=== PATIENT | female | born 1950 | race Caucasian/White ===

== ENCOUNTER 2017-11-09 20:05 | Inpatient (IN) | payer OTHER ==
[~2017-11-09] VITALS: Ht 165.1 cm; Wt 76.4 kg
[2017-11-09] VITALS (11 sets, daily range): BP systolic 82–169; BP diastolic 53–150
--- NOTE | ~2017-11-09 | PR ---
[place], [place] PROGRESS NOTE [id number] UNIT #: [id number] ROOM: 427 DOCTOR: HANNAH WASSERMAN MD,JAI BIRTHDATE: [birth year] DOS: 11/16/2017 SUBJECTIVE: The patient was noted comfortable at this time, resting on the bed without any new acute changes present time. Coughing has been improving gradually. The shortness of breath has improved and not present at rest. There were no symptoms of wheezing reported by the patient. OBJECTIVE: VITAL SIGNS: For the patient shows a normal temperature. The respiratory rate recorded at 18, heart 79, blood pressure 166/88. The pulse oxygen saturation recorded as 96% on room air. HEENT: Examination shows head was atraumatic. Eyes was nonicterus. NECK: Supple. CARDIOVASCULAR: S1, S2 is audible. LUNGS: Noted clear to auscultation bilaterally. There were no crackles. ABDOMEN: Soft, nontender. EXTREMITIES: Chronic changes. LABORATORY DATA: BMP today normal BUN and creatinine. The CBC of the patient this morning: WBC count 4.7. IMPRESSION: The patient resolution of diabetic ketoacidosis, resolving acute pneumonia of left lower lobe as well as pleural effusions. PLAN OF TREATMENT: No changes in the plan for this patient at this time will be necessary. The patient is improving progressively. Continuation of other therapy and plan of management as well. JAI YOUNG MD CM:PNTRANS [id number] JAI WASSERMAN MD 11/16/17 182 interface
--- NOTE | ~2017-11-09 | PR ---
[place], [place] PROGRESS NOTE [id number] UNIT #: [id number] ROOM: 427 DOCTOR: HANNAH WASSERMAN MD,JAI BIRTHDATE: [birth year] DOS: 11/19/2017 SUBJECTIVE: She was comfortably resting at this time on the bed. Denies symptoms of chest pain, hemoptysis, or abdominal pain. Denies symptoms of nausea. The patient stated chest pain has been noted better as her upper abdominal pain. OBJECTIVE: VITAL SIGNS: For the patient was recorded as a normal temperature. The respiratory rate of the patient recorded as 20, heart rate 60, blood pressure 130/49. Pulse oxygen saturation on room air 98% saturation. HEENT: No acute change. NECK: Supple. CARDIOVASCULAR: S1, S2 audible. LUNGS: Noted without any wheezing or crackles. ABDOMEN: Soft and nontender. EXTREMITIES: No edema. LABORATORY DATA: CBC: Normal WBC count, hemoglobin 10 today. Glucose was 153. Other electrolytes normal. IMPRESSION: Resolving acute pneumonia for this patient on the left side with resolution of diabetic ketoacidosis and diabetes mellitus, which has been noted variably controlled. PLAN OF MANAGEMENT: No changes in the plan for the patient at this time. Continue the current plan of therapy as previously. Usual care. Supportive plan of management and treatment. JAI YOUNG MD CM:PNTRANS [id number] JAI WASSERMAN MD 11/19/171914 interface
--- NOTE | ~2017-11-09 | PR ---
[place], [place] PROGRESS NOTE NAME: RICHARD NIEVES UNIT #: [id number] ROOM: [facility] DOCTOR: HANNAH WASSERMAN MD,JAI BIRTHDATE: [birth year] DOS: 11/12/2017 SUBJECTIVE: The patient has been noted comfortable at this time, resting on the bed. Her orientation noted somewhat better. The patient was noted more awake. The patient is appropriate, but still not noted completely to the baseline at the present time. She has been ordered the viral testing for this patient with a nasal influenza A antigen, which was noted yesterday negative. She has not been able to still give any history at the present time. The patient has not been reported any hemodynamic instability except tachycardia with this patient intermittently. Tachycardia noted mostly sinus. The review of systems cannot be completed for this patient. OBJECTIVE: VITAL SIGNS: The patient showed normal temperature, respiratory rate 20, heart rate of 125 at the highest to 109. Blood pressure ranging between 134/60-120/60. Pulse oxygen saturation of the patient noted to room air 96% saturation. HEENT: Mild obesity. Head was atraumatic. Eyes nonicterus. NECK: Supple. CARDIOVASCULAR: S1, S2 is audible. LUNGS: The patient was noted without any wheezing or crackles at present time. ABDOMEN: Soft, nontender. It was obese. Abdominal hernia. EXTREMITIES: The patient was noted without any acute edema. CENTRAL NERVOUS SYSTEM: The patient apparently grossly intact, cranial nerve examination cannot be performed. VISIBLE SKIN: There was no lesions or rashes. MUSCULOSKELETAL SYMPTOMS: Without any acute deformities. LABORATORY DATA: Review for the patient today's visit lactic acid yesterday noted 2.9. Follow up lactic acid 1.9, ammonia level was normal. Influenza A and B, nasal washing antigen negative yesterday. CBC of this morning: WBC count was normal, hemoglobin and hematocrit normal, platelet count normal. CT of the patient, glucose 242, BUN normal, creatinine was normal. The CT scan of the chest that was done yesterday as well neck, abdomen and pelvis, the patient ordered by the primary care attending was reviewed. Small to moderate lingular infiltration noted for this patient in the left lung is highly consistent with acute pneumonia. The rest of the CT scan of the neck, abdomen and pelvis that was done yesterday is reported by the radiologist as a small air fluid level in the right sphenoid sinus and possibility of mild sphenoid sinusitis was suspected with multinodular enlarged goiter in the thyroid was also noted and a similar appearance in comparison to the ultrasound of patient in 2011, was reported. Ill-defined mass of soft tissue noted in the pelvic area of the patient, unclear whether uterus or arising from the ovary. Approximately described as size of 8 x 5.6 cm in size. Pelvic ultrasound was recommended. IMPRESSION: 1. The patient who has been currently noted with finding consistent with an acute pneumonia for this patient. 2. Altered mental status, multifactorial related to the metabolic and infectious in origin for the patient with the sepsis. [place], [place] PROGRESS NOTE NAME: RICHARD NIEVES UNIT #: [id number] ROOM: [facility] DOCTOR: HANNAH WASSERMAN MD,JAI BIRTHDATE: [birth year] 3. Pelvic mass at this time required further delineation and assessment. 4. Resolution of diabetic ketoacidosis. 5. Improvement in the hyperglycemia and diabetes was also noted in the last 24 hours. The blood glucose noted currently close to 200. PLAN OF MANAGEMENT: Continuation of the antibiotics. The patient with acute pneumonia, bronchodilators, oxygen supplementation. Rocephin should suffice for the patient with current coverage of the antibiotics. Discontinue the vancomycin. Add in the Zithromax for this patient to the treatment. Other supportive therapy, plan of management and care plan. Usual treatment. Additional treatment changes to be made for this patient based on the progression of illness. JAI YOUNG MD CM:PNTRANS [id number] JAI WASSERMAN MD 11/12/17 1411 interface
--- NOTE | ~2017-11-09 | PR ---
[place], [place] PROGRESS NOTE [id number] UNIT #: [id number] ROOM: 427 DOCTOR: HANNAH WASSERMAN MD,JAI BIRTHDATE: [birth year] DOS: 11/13/2017 SUBJECTIVE: She has been noted fully awake and alert, oriented with improvement in mental status was noted. She has not been showing any signs of respiratory distress. Denies symptoms of coughing and acute shortness of breath. OBJECTIVE: VITAL SIGNS: For the patient which was recorded shows normal temperature, respiratory rate 17, heart rate of 110-88, blood pressure 140/70-130/60, pulse oxygen saturation was noted as 92%. HEENT: Shows head was atraumatic. Eyes, no icterus. NECK: Supple. CARDIOVASCULAR: S1, S2 is audible. LUNGS: The patient was noted with mild to moderate decreased breath sounds in the left lower lung. There was no wheezing or crackles. ABDOMEN: Soft, nontender. EXTREMITIES: The patient was noted without any acute edema. IMPRESSION: The patient with acute pneumonia resolution, severe diabetic ketoacidosis. The patient is improving metabolic acidosis, clearing of the mental status after resolving metabolic issues. PLAN OF MANAGEMENT: No changes in the medical plan from the pulmonary standpoint. Continue workup and management of other non-pulmonary condition by the primary care physician. Obtain a chest x-ray in the morning to assess the radiologic improvement in the pneumonia or progression. JAI YOUNG MD CM:PNTRANS [id number] JAI WASSERMAN MD 11/13/17 2609 interface
--- NOTE | ~2017-11-09 | CON ---
[place], [place] REPORT OF CONSULTATION NAME: RICHARD NIEVES UNIT #: [id number] ROOM: [facility] DOCTOR: ARIANE MAYORGA MD BIRTHDATE: [birth year] DOS: 11/11/2017 REASON FOR CONSULTATION: DKA, septic shock, metabolic encephalopathy. CHIEF COMPLAINT: Altered mental status. HISTORY OF PRESENT ILLNESS: This is a 67-year-old female who presented initially to the ER with EMS as patient was found to be lethargic, hyperglycemic. According to her , she has been sick for a week with cough, nausea, vomiting. The patient was initially managed in the ER with DKA and was also on Levophed for a brief period of time. At this time, the patient is alert and awake, but not a good historian. She denies having any fever or chills. Currently, no nausea, vomiting. Does describe diffuse abdominal pain. No dysuria or any other urinary symptoms. Currently, her vitals are stable. Initially on presentation to the ER, she has a leukocytosis of 15.1 as well as lactic acidosis. Her UA is not impressive for a UTI. Her blood cultures so far negative from admission on November 09. She is being initially given ceftriaxone and Rocephin for left lower lobe pneumonia as seen on the chest x-ray and then later started on ampicillin plus ceftriaxone concerning for meningitis and plan for an LP. PAST MEDICAL HISTORY: Significant for diabetes type 2, uncontrolled with possible eye involvement, rest unsure. PAST SURGICAL HISTORY: Unknown at this time. ALLERGIES: No known drug allergies. HOME MEDICATIONS: Include insulin, lisinopril, atorvastatin, metformin. REVIEW OF SYSTEMS: Twelve point review of system has been done, pertinent negative and positives has been included in HPI, others are noncontributory. PHYSICAL EXAMINATION: VITAL SIGNS: Current vitals include temperature of 98.0, pulse rate of 120, respiratory rate 20, blood pressure 137/72, oxygen saturation of 95% on room air. GENERAL: The patient is alert and oriented times 2. Slow in response, possibly vision issues, often distracted during the exam. HEENT: Atraumatic, normocephalic. Eye exam, not cooperating for a complete exam but concerning for blindness. RESPIRATORY: Air entry bilaterally equal. Coarse crackles, right more than left lung and obvious gurgling sound suggestive of stridor can be appreciated. CARDIOVASCULAR: S1, S2 tachycardic. No murmur, rubs or gallop. ABDOMEN: Soft, lower abdomen big pannus with lipodystrophy can be seen on deep palpation, tender over the lower quadrants and mid epigastric region. No suprapubic or CVA tenderness. MUSCULOSKELETAL: No focal cyanosis, swelling or redness over the joints. SKIN: Extensive excoriation, redness, pain on the inframammary area bilaterally with ulcerations can be seen. [place], [place] REPORT OF CONSULTATION NAME: RICHARD NIEVES UNIT #: [id number] ROOM: [facility] DOCTOR: ARIANE MAYORGA MD BIRTHDATE: [birth year] NEUROLOGIC: Currently no neck stiffness. Gag reflex present. Moving all four extremities, able to sit on her own, following most of the commands. LABORATORY DATA AND IMAGING: Reviewed, mentioned in HPI. ASSESSMENT: 1. Septic shock. 2. Diabetic ketoacidosis, resolved. 3. Inframammary candidiasis. 4. Community-acquired pneumonia. 5. Possible viral illness. PLAN: At this time, the patient is alert and awake, but not completely oriented. Her initial state of confusion, metabolic encephalopathy could be from diabetic ketoacidosis, resolved with appropriate management, at this time not concerning to me for a meningitis. On a clinical exam, I defer for LP. It is appropriate to keep her on vancomycin and ceftriaxone for likely sources of pneumonia and possible bloodstream infection. Continue Diflucan orally for an extensive inframammary candidiasis. CT scan of the abdomen mentioning mass has to be reviewed with radiology. Agree with getting a respiratory viral panel. Obtain respiratory cultures, blood cultures. Urine not impressive for urinary tract infection. Appropriate diabetic care and placement, consider ophthalmology consult. Thank you for your consult, please call for any questions. Ariane Mayorga MD CM:CONSTR:REPORT OF CONSULTATION 2231 11/12/17 0543 interface
--- NOTE | ~2017-11-09 | PR ---
[place], [place] PROGRESS NOTE NAME: [id number] UNIT #: [id number] ROOM: 427 DOCTOR: HANNAH WASSERMAN MD,JAI BIRTHDATE: [birth year] DOS: 11/15/2017 SUBJECTIVE: The patient was noted comfortable at this time without any acute distress. Reported no acute respiratory complaints at this time, has not been noted symptoms of chest pain. Coughing has been still present, but gradual improvement was noticed. OBJECTIVE: VITAL SIGNS: For the patient which was recorded shows the temperature was noted as normal. The respiratory rate of the patient recorded as 18. Heart rate of 79, blood pressure is 141/50 to 148/58. Pulse oxygen saturation on room air 98% saturation. HEENT: No acute change. NECK: Supple. CARDIOVASCULAR: S1, S2 audible. LUNGS: Without any wheeze or crackle at the present time. ABDOMEN: Soft, nontender. IMPRESSION: 1. Resolving acute pneumonia, clinically and radiologically of the patient was noted. 2. Resolution of the diabetic ketoacidosis with significant continued improvement in the uncontrolled diabetes was also noted. PLAN OF THERAPY: No changes in the plan for this patient. Continuation of current therapy plan as previously. Usual care, other supportive plan of management and treatments. JAI YOUNG MD CM:PNTRANS [id number] JAI WASSERMAN MD 11/15/171935 interface
--- NOTE | ~2017-11-09 | PR ---
[place], [place] PROGRESS NOTE NAME: RICHARD NIEVES [facility] #: [id number] UNIT #: [id number] ROOM: 427 DOCTOR: HANNAH WASSERMAN MD,JAI BIRTHDATE: [birth year] DOS: 11/18/2017 SUBJECTIVE: The patient noted comfortable at this time without any acute distress, complaining of pain at time when she eat very fast in the left upper chest. The coughing has been noted mild for the patient intermittently without any sputum expectoration. The patient denies any wheezing. OBJECTIVE: VITAL SIGNS: Normal temperature this morning, respiratory rate 20, heart rate 91, and blood pressure 99/72. The pulse oxygen saturation on room air 93% saturation recorded. HEENT: Examination shows head was atraumatic. Eyes nonicterus. NECK: Supple. CARDIOVASCULAR: S1, S2 audible. LUNGS: Clear of any wheezing or crackles. ABDOMEN: Soft and nontender. EXTREMITIES: Without any acute edema. IMPRESSION: 1. Stable respiratory status was noted with patient at this time, resolving acute pneumonia. 2. Resolution of diabetic ketoacidosis previously, current noted diabetes mellitus with variable blood glucose noted from 300 to 200 or less. PLAN OF MANAGEMENT: No changes from the Pulmonary standpoint at this time. Continue the patient's current therapy, plan and management previously. No additional changes in treatment will be recommended. JAI YOUNG MD CM:PNTRANS 10 JAI WASSERMAN MD 11/18/171910 interface
--- NOTE | ~2017-11-09 | CON ---
[place], [place] REPORT OF CONSULTATION NAME: RICHARD NIEVES UNIT #: [id number] ROOM: [facility] DOCTOR: JAI FULLER MD BIRTHDATE: [birth year] DOS: 11/11/2017 PULMONARY CONSULTATION, EVALUATION AND MANAGEMENT CONSULTATION REQUESTED BY: Hospitalist services. REASON FOR CONSULTATION: For assessment of possible pneumonia with change in mental status. HISTORY OF PRESENT ILLNESS: The patient is unable to give me any history. All the history essentially was obtained from review of medical records and discussion with Dr. Brown who is the primary care attending for the patient on this admission. This is a 67-year-old white female who has been brought to the hospital. The patient has developed a severe increase in the blood sugar and also noted some other abnormal labs. The patient noted change in mental status with extreme confusional status. She has not been reported any symptoms of shortness of breath. The patient has been noted with increased respiratory symptoms with increase in cough for this patient, which are reported by the for the patient ongoing for about a week. On admission, she was noted with acute diabetic ketoacidosis was treated with the protocol, diabetic ketoacidosis insulin drip, which has just been discontinued and switched ____ with a regular insulin coverage, subcutaneous insulin use. The patient has been noted sitting on the bed noted quite restless. She does not answer much of the question of the patient appropriate at this time. She has not been showing any signs of respiratory distress. She has not been noted any coughing at this time of the assessment. REVIEW OF SYSTEMS: Cannot be effectively completed because of the patient's current persistent change in mental status, which are noted partially improved, but not noted as normal. PAST MEDICAL HISTORY: 1. Essential hypertension. 2. Type 2 diabetes mellitus. SOCIAL HISTORY: The patient is , was living at home prior to the hospitalization. There was no known history of tobacco, alcohol or illicit drug use. PAST SURGICAL HISTORY: Noted none reported. FAMILY HISTORY: Reported for diabetes mellitus in the parents. CURRENT MEDICATIONS: Administered noted use of vitamin D, ____, Lovenox, Protonix, Levophed for hypotension management, IV azithromycin, Rocephin and other p.r.n. medications. Insulin drip was just discontinued. DRUG ALLERGIES: Noted for no known allergies reported. PHYSICAL EXAMINATION: [place], [place] REPORT OF CONSULTATION NAME: RICHARD NIEVES UNIT #: [id number] ROOM: [facility] DOCTOR: HANNAH WASSERMAN MD,JAI BIRTHDATE: [birth year] GENERAL: This is a 67-year-old white female noted restless for the patient without any acute distress, on the bed. Height was noted 5 feet 5 inches, weight of 168 pounds, BMI 28. However, the patient was noted awake and alert. She would not appear to be sleepy. VITAL SIGNS: The temperature of the patient noted on admission as a temperature of 92.3 degree Fahrenheit rectal temperature which are noted normal later on within 24 hours. The respiratory rate range between 20 to 27, heart rate 124, sinus tachycardia with a blood pressure of lowest of 85/38. This morning, blood pressure noted 136/58. Intake for the patient 1000 mL, the output was recorded as 225 mL in the last 24 hours, pulse oxygen saturation on room air was 94-95% saturation. HEENT: Limited exam. Head appeared to be atraumatic. Eyes were nonicterus. NECK: Supple. CARDIOVASCULAR: S1, S2 audible. LUNGS: Noted with [id number] decreased breath sounds, there was no wheezing heard. Scattered crackles noted this in the lung bases. ABDOMEN: Noted soft with moderate obesity. Ventral hernia. CENTRAL NERVOUS SYSTEM: Restlessness was noted, the patient moving all extremities with altered mental status, further examination could not be performed. SKIN: Visible skin. No lesions or rashes. MUSCULOSKELETAL SYMPTOM: Without any acute deformities. LABORATORY DATA: CT scan of the head, which was done without contrast in the Emergency Room, the patient was noted without any acute intracranial abnormalities. The lactic acid noted 2.6 on admission. PT/PTT of the patient on 11/09/2017 were noted normal. The CMP of the patient of 11/09, glucose 734, BUN 25, creatinine 1.24. Sodium 134, CO2 of only 5, chloride 100, potassium 4.1, albumin 2.9. CBC 11/09/2017, WBC count 15.1, hemoglobin 14.8, hematocrit 47.3, platelet count of 284,000. Arterial blood gas pH of 7.06, pCO2 15.8, pO2 88.8 on admission as well on 11/09. The followup lactic acid noted 2.1 same day. CBC of the patient that were done yesterday, WBC count 15.2, remaining CBC was completely normal. PT/PTT repeated again yesterday were noted normal. BMP of the patient 319, BUN normal, creatinine was normal, sodium 135, potassium 4.2, chloride of 109, CO2 of 14. Anion gap was noted at this time as normal. BMP followup for the patient noted normal BUN and creatinine, CO2 was elevated at 16, chloride 111 with a normal anion gap as well yesterday. The lactic acid was elevated again at 2.9 at the present time. Blood culture, no bacterial growth to assess for the patient 11/09/2017, preliminary. Arterial blood gas this morning, pH of 7.40, pCO2 36, pO2 153. Ammonia level, which was checked was normal. Lactic acid of the patient elevated in the morning early as 2.9 and followup 1.9. The chest x-ray of the patient 1 view done in the Emergency Room was noted rotated film towards the left, which was also limiting the exact assessment for this patient. Small pleural fluid or atelectasis cannot be completely excluded. The chest x-ray of the patient, which was repeated for the patient this morning one view again at the bedside noted with pulmonary venous congestion, which was noted. The first chest x-ray, there was no gross area of consolidation visible. IMPRESSION: [place], [place] RE[facility] OF [facility]ATION [facility]: [id number] UNIT #: [id number] ROOM: [facility] DOCTOR: JAI FULLER MD BIRTHDATE: [birth year] 1. The patient who has been currently noted with altered mental status most likely metabolic in nature for the patient is very likely with current metabolic abnormality. Recent resolution of diabetic ketoacidosis with intermittent lactic acidosis as well. Pneumonia for this patient cannot be completely excluded, but appeared to be at least less likely with the view of current chest x-ray, pulmonary venous congestion might be related to the intravenous fluids administration or other etiologies. 2. The patient with resolution of the metabolic acidosis progressively seen. The resolution of diabetic ketoacidosis with a high anion gap metabolic acidosis has been already corrected effectively. 3. The patient with rule out viral syndrome for this patient as well. The patient continued to have a persistent change in mental status. PLAN OF TREATMENT: Certainly, she might require the lumbar puncture as well. Obtain a chest x-ray, PA and lateral view for further assessment. All the nasopharyngeal washing of the patient for the influenzae infection as well as a virus panel. Empirical antibiotic for the patient to be continued previously for the typical atypical coverage. Usual care, other supportive therapy, plan of management and care plan. Other treatment changes to be made for this patient based on progression of the illness. DVT prophylaxis for this patient with the Lovenox. Supportive care, plan of management and other therapies. Assessment and management were discussed with the patient's primary care attending, Dr. Brown. Total time in pulmonary critical care evaluation and management of the patient's note is 38 minutes. JAI YOUNG MD CM:CONSTR:REPORT OF CONSULTATION 1254 11/11/17 2015 interface
--- NOTE | ~2017-11-09 | PR ---
[place], [place] PROGRESS NOTE NAME: RICHARD NIEVES UNIT #: [id number] ROOM: 427 DOCTOR: JAI FULLER MD BIRTHDATE: [birth year] DOS: 11/14/2017 SUBJECTIVE: She was noted fully awake, alert, oriented with further improvement in mental status. There were symptoms of chest pain, hemoptysis. The patient does have gaqy-la-rzxyjshl cough, but there were no sputum expectoration and abdominal pain. OBJECTIVE: VITAL SIGNS: Normal temperature, respiratory rate 18, heart rate 84, blood pressure is 156/70, 149/88. Pulse oxygen saturation on room air was 96% saturation. HEENT: No acute change. NECK: Supple. CARDIOVASCULAR: S1, S2 is audible. LUNGS: Without any wheezing or crackles at this time. ABDOMEN: Soft, nontender with obesity and abdominal hernia. EXTREMITIES: No new changes. LABORATORY DATA: The patient's chest x-ray this morning shows resolution of previous noted, small left lower lobe infiltration and the pleural fluid. The BMP today was noted with normal BUN and creatinine. Potassium 3.3, glucose 181. Respiratory viral panel noted positive, influenza B positive infection. Urine for legionella negative. IMPRESSION: 1. Influenza B positive findings. 2. Resolving acute pneumonia as well. 3. Resolution of diabetic ketoacidosis. 4. Improvement in mental status. 5. Improving severe hyperglycemia. PLAN OF TREATMENT: No changes in the plan of management. The patient will be continued on bronchodilators and oxygen supplementation. Completion of the antibiotic for acute bacterial pneumonia. Discontinuation of the vancomycin. The treatment for the patient's influenza B infection at this time, may not be necessary since the patient was already recovering from the acute illness. [place], [place] PROGRESS NOTE NAME: RICHARD NIEVES UNIT #: [id number] ROOM: 427 DOCTOR: JAI FULLER MD BIRTHDATE: [birth year] JAI YOUNG MD CM:PNTRANS [id number] JAI WASSERMAN MD 11/15/17 0045 interface
--- NOTE | ~2017-11-09 | PR ---
[place], [place] PROGRESS NOTE NAME: [id number] UNIT #: [id number] ROOM: 427 DOCTOR: HANNAH WASSERMAN MD,JAI BIRTHDATE: [birth year] DOS: 11/17/2017 SUBJECTIVE: The patient noted comfortable at this time, resting in bed without any acute distress. She has not been noted any symptoms of chest pain or hemoptysis. She was still complaining of some epigastric discomfort upon eating. The coughing has improved significantly. OBJECTIVE: VITAL SIGNS: Normal temperature, respiratory rate 20, heart rate of 82, blood pressure 160/67. Pulse oxygen on room air 100% saturation. HEENT: Examination shows head was atraumatic. Eyes nonicterus. NECK: Supple. CARDIOVASCULAR: S1, S2 audible. LUNGS: Without any wheeze or crackles. ABDOMEN: Soft, nontender. IMPRESSION: 1. Resolution of the acute pneumonia involving the left lower lobe for this patient clinically and radiologically. 2. Diabetic ketoacidosis, improving hyperglycemia. PLAN OF TREATMENT: Discontinuation of the antibiotic for the patient at this time. The patient already shows resolution of acute infection, follow the Infectious Disease specialist for that. JAI YOUNG MD CM:PNTRANS [id number] JAI WASSERMAN MD 11/17/17 1350 interface
--- NOTE | ~2017-11-09 | PR ---
[place], [place] PROGRESS NOTE NAME: [facility]EVES [id number] UNIT #: [id number] ROOM: 427 DOCTOR: HANNAH WASSERMAN MD,JAI BIRTHDATE: [birth year] DOS: 11/20/2017 SUBJECTIVE: She was noted comfortable at this time, resting on the chair. There were symptoms of coughing and sputum expectoration at the present time. OBJECTIVE: VITAL SIGNS: Normal temperature, respiratory rate 20, heart rate 69, blood pressure 142/70. Pulse oxygen saturation of the patient on room air 95% saturation. HEENT: No acute change. NECK: Supple. CARDIOVASCULAR: S1, S2 audible. LUNGS: Clear of any wheezing or crackles. ABDOMEN: Soft, nontender. IMPRESSION: Progressive resolution, improvement in the acute respiratory symptoms continued with acute pneumonia, pleural fluid, and others. Resolution of past diabetic ketoacidosis on this hospitalization. PLAN OF TREATMENT: No change in therapy. Continue current plan of treatment without any changes in the treatment. Usual care, other supportive plan of management and care. JAI YOUNG MD CM:PNTRANS 1400 7 JAI WASSERMAN MD 11/21/17127 interface
[2017-11-09] MEDS ORDERED: METFORMIN1000 MG PO (20:15)
[2017-11-09] MEDS ORDERED: LISINOPRIL20 MG PO (20:16)
[2017-11-09] MEDS ORDERED: LOVASTATIN20 MG PO (20:17)
[2017-11-09] MEDS ORDERED: AMLODIPINE BESYL5 MG PO (20:25)
[2017-11-09 21:34] LABS: HEMATOCRIT 47.3 % (37.0-47.0); HEMOGLOBIN 14.8 g/dl (12.0-16.0); MEAN CELL VOLUME 89.1 fl (81.0-99.0); MEAN CORPUSCULAR HGB 27.9 pg (27.0-31.0); MEAN CORPUSCULAR HGB CONC 31.3 g/dl (33.0-37.0); MEAN PLATELET VOLUME 11.6 fl (9.6-12.3); PLATELET COUNT AUTOMATED 284 10*3/uL (130-400); RED BLOOD COUNT 5.31 10*6/uL (4.10-5.10); RED CELL DISTRI WIDTH 13.6 % (0-14.5); WHITE BLOOD COUNT 15.1 10*3/uL (4.8-10.8)
[2017-11-09 21:45] LABS: ACT PARTIAL THROMBO TIME 29.1 SECONDS (20.8-31.5)
[2017-11-09 21:55] LABS: ALBUMIN 2.9 gm/dl (3.1-4.5); ALKALINE PHOSPHATASE 104 U/L (45-117); BUN 25 mg/dl (7-24); CHLORIDE 100 mmol/L (98-107); CREATININE 1.24 mg/dL (0.55-1.02); POTASSIUM 4.5 mmol/L (3.5-5.1); SGOT/AST 9 IU/L (3-35); SGPT/ALT 17 U/L (12-78); SODIUM 134 mmol/L (136-145); TOTAL PROTEIN 7.6 gm/dL (6.4-8.2)
[2017-11-09 22:00] LABS: TROPONIN I < 0.015 ng/ml (<0.045)
[2017-11-09 22:11] LABS: TOTAL CELLS COUNTED 100 #CELLS
[2017-11-09 22:12] LABS: PLATELET SUFFICIENCY NORMAL (NORMAL)
[2017-11-09 22:37] LABS: BILIRUBIN 2+ (NEGATIVE); BLOOD TRACE-INTACT (NEGATIVE); CLARITY CLEAR (CLEAR); COLOR YELLOW (YELLOW); GLUCOSE 3+ (NEGATIVE); KETONE 3+ (NEGATIVE); LEUKO ESTERASE NEGATIVE (NEGATIVE); NITRITE NEGATIVE (NEGATIVE); PH 5.5 (5.0-9.0); SPECIFIC GRAVITY >= 1.030 (1.005-1.030); UROBILINOGEN 0.2 E.U./dl (0.2-1.0)
[2017-11-09 22:56] LABS: BACTERIA 1+
[2017-11-09 23:08] LABS: ABG HCO3 4.6 mmol/l (22-26); ABG O2 SATURATION 95.4 % (95-97); ARTERIAL BLOOD GAS PCO2 15.8 mmHg (35-45); ARTERIAL BLOOD GAS PO2 88.7 mmHg (80-90)
[2017-11-09 23:13] LABS: ABG BASE EXCESS -26.2 mmol/L (-2.0-2.0); ARTERIAL BLOOD GAS PH 7.062 (7.35-7.45)
[2017-11-10] VITALS (26 sets, daily range): BP systolic 85–141; BP diastolic 37–77
[2017-11-10] MEDS ORDERED: ASPIRIN325 MG PO (00:14)
[2017-11-10] MEDS ORDERED: NOVOLIN 70100 UNIT/1 SQ (00:16)
[2017-11-10 05:05] LABS: BUN 22 mg/dl (7-24); CHLORIDE 111 mmol/L (98-107); CREATININE 0.95 mg/dL (0.55-1.02); SODIUM 141 mmol/L (136-145)
[2017-11-10 05:07] LABS: POTASSIUM 3.4 mmol/L (3.5-5.1)
[2017-11-10 05:10] LABS: PHOSPHOROUS 1.2 mg/dL (2.5-4.9)
[2017-11-10 05:15] LABS: THYROID STIM HORMONE (HS) 0.06 uIU/ml (0.358-4.75)
[2017-11-10 06:14] LABS: BASO % 0.1 % (0.0-1.0); HEMOGLOBIN 13.8 g/dl (12.0-16.0); LYMPH # 0.8 10*3/uL (1.3-4.4); LYMPH % 5.2 % (27.0-41.0); MEAN CORPUSCULAR HGB 28.8 pg (27.0-31.0); MEAN CORPUSCULAR HGB CONC 33.9 g/dl (33.0-37.0); MEAN PLATELET VOLUME 11.7 fl (9.6-12.3); MONO # 1.2 10*3/uL (0.1-1.0); MONO % 7.6 % (3.0-9.0); NEUT # 13.2 10*3/uL (2.3-7.9); NEUT % 86.6 % (47.0-73.0); PLATELET COUNT AUTOMATED 266 10*3/uL (130-400); RED BLOOD COUNT 4.79 10*6/uL (4.10-5.10); RED CELL DISTRI WIDTH 13.8 % (0-14.5); WHITE BLOOD COUNT 15.2 10*3/uL (4.8-10.8)
[2017-11-10 06:18] LABS: HEMATOCRIT 40.7 % (37.0-47.0)
[2017-11-10 06:22] LABS: ACT PARTIAL THROMBO TIME 21.6 SECONDS (20.8-31.5)
[2017-11-10 08:10] LABS: VITAMIN D, 25-HYDROXY < 4.2 ng/mL (30-100)
[2017-11-10 09:22] LABS: BUN 18 mg/dl (7-24); CHLORIDE 109 mmol/L (98-107); CREATININE 0.77 mg/dL (0.55-1.02); POTASSIUM 4.2 mmol/L (3.5-5.1); SODIUM 135 mmol/L (136-145)
[2017-11-10 12:45] LABS: BUN 19 mg/dl (7-24); CHLORIDE 111 mmol/L (98-107); POTASSIUM 3.7 mmol/L (3.5-5.1); SODIUM 139 mmol/L (136-145)
[2017-11-10 17:48] LABS: BUN 17 mg/dl (7-24); CHLORIDE 108 mmol/L (98-107); CREATININE 0.74 mg/dL (0.55-1.02); POTASSIUM 4.1 mmol/L (3.5-5.1); SODIUM 137 mmol/L (136-145)
[2017-11-10 22:43] LABS: BUN 14 mg/dl (7-24); CHLORIDE 108 mmol/L (98-107); CREATININE 0.79 mg/dL (0.55-1.02); POTASSIUM 4.1 mmol/L (3.5-5.1); SODIUM 138 mmol/L (136-145)
[2017-11-11] VITALS: BP 111/40
[2017-11-11 04:00] VITALS: BP 153/78
[2017-11-11 04:49] LABS: BASO % 0.1 % (0.0-1.0); HEMOGLOBIN 12.8 g/dl (12.0-16.0); LYMPH % 9.4 % (27.0-41.0); MEAN CELL VOLUME 84.2 fl (81.0-99.0); MEAN CORPUSCULAR HGB 27.6 pg (27.0-31.0); MEAN CORPUSCULAR HGB CONC 32.8 g/dl (33.0-37.0); MEAN PLATELET VOLUME 11.2 fl (9.6-12.3); MONO # 0.8 10*3/uL (0.1-1.0); MONO % 7.1 % (3.0-9.0); NEUT # 9.2 10*3/uL (2.3-7.9); NEUT % 82.9 % (47.0-73.0); PLATELET COUNT AUTOMATED 246 10*3/uL (130-400); RED BLOOD COUNT 4.63 10*6/uL (4.10-5.10); WHITE BLOOD COUNT 11.1 10*3/uL (4.8-10.8)
[2017-11-11 05:09] LABS: ALBUMIN 2.6 gm/dl (3.1-4.5); BUN 11 mg/dl (7-24); CHLORIDE 108 mmol/L (98-107); POTASSIUM 3.6 mmol/L (3.5-5.1); SGOT/AST 19 IU/L (3-35); SGPT/ALT 18 U/L (12-78); SODIUM 139 mmol/L (136-145)
[2017-11-11 05:12] LABS: ALKALINE PHOSPHATASE 86 U/L (45-117); CREATININE 0.63 mg/dL (0.55-1.02); TOTAL PROTEIN 6.7 gm/dL (6.4-8.2)
[2017-11-11 07:15] LABS: ABG BASE EXCESS -1.5 mmol/L (-2.0-2.0); ABG HCO3 22.1 mmol/l (22-26); ABG O2 SATURATION 99.1 % (95-97); ARTERIAL BLOOD GAS PH 7.406 (7.35-7.45)
[2017-11-11 08:00] VITALS: BP 152/73
[2017-11-11 12:00] VITALS: BP 142/77
[2017-11-11 16:00] VITALS: BP 137/72
[2017-11-11 20:00] VITALS: BP 120/60
[2017-11-12] VITALS: BP 136/70
[2017-11-12 04:00] VITALS: BP 134/60
[2017-11-12 06:19] LABS: ALBUMIN 2.6 gm/dl (3.1-4.5); ALKALINE PHOSPHATASE 91 U/L (45-117); BUN 4 mg/dl (7-24); CHLORIDE 105 mmol/L (98-107); CREATININE 0.61 mg/dL (0.55-1.02); POTASSIUM 3.5 mmol/L (3.5-5.1); SGOT/AST 25 IU/L (3-35); SGPT/ALT 20 U/L (12-78); SODIUM 141 mmol/L (136-145); TOTAL PROTEIN 6.6 gm/dL (6.4-8.2)
[2017-11-12 06:25] LABS: BASO % 0.2 % (0.0-1.0); HEMATOCRIT 41.5 % (37.0-47.0); HEMOGLOBIN 13.7 g/dl (12.0-16.0); LYMPH # 1.5 10*3/uL (1.3-4.4); LYMPH % 26.6 % (27.0-41.0); MEAN CORPUSCULAR HGB 28.1 pg (27.0-31.0); MEAN PLATELET VOLUME 11.7 fl (9.6-12.3); MONO # 0.6 10*3/uL (0.1-1.0); MONO % 9.7 % (3.0-9.0); NEUT # 3.5 10*3/uL (2.3-7.9); NEUT % 62.4 % (47.0-73.0); PLATELET COUNT AUTOMATED 301 10*3/uL (130-400); RED BLOOD COUNT 4.88 10*6/uL (4.10-5.10); RED CELL DISTRI WIDTH 14.2 % (0-14.5); WHITE BLOOD COUNT 5.7 10*3/uL (4.8-10.8)
[2017-11-12 08:00] VITALS: BP 172/80
[2017-11-12 08:44] LABS: FREE T4 1.34 ng/dl (0.76-1.46); THYROID STIM HORMONE (HS) 0.247 uIU/ml (0.358-4.75)
[2017-11-12 12:00] VITALS: BP 153/53
[2017-11-12 16:00] VITALS: BP 155/80
[2017-11-12 20:00] VITALS: BP 151/79
[2017-11-13] VITALS: BP 130/60
[2017-11-13 04:00] VITALS: BP 151/76
[2017-11-13 06:05] LABS: ALBUMIN 2.4 gm/dl (3.1-4.5); ALKALINE PHOSPHATASE 85 U/L (45-117); BUN 3 mg/dl (7-24); CHLORIDE 103 mmol/L (98-107); CREATININE 0.36 mg/dL (0.55-1.02); POTASSIUM 2.8 mmol/L (3.5-5.1); SGOT/AST 21 IU/L (3-35); SGPT/ALT 19 U/L (12-78); SODIUM 138 mmol/L (136-145); TOTAL PROTEIN 6.5 gm/dL (6.4-8.2)
[2017-11-13 06:11] LABS: BASO % 0.4 % (0.0-1.0); EOS % 0.2 % (1.0-4.0); LYMPH # 1.5 10*3/uL (1.3-4.4); LYMPH % 30.3 % (27.0-41.0); MEAN CELL VOLUME 84.8 fl (81.0-99.0); MEAN CORPUSCULAR HGB 27.6 pg (27.0-31.0); MEAN CORPUSCULAR HGB CONC 32.6 g/dl (33.0-37.0); MEAN PLATELET VOLUME 11.5 fl (9.6-12.3); MONO # 0.5 10*3/uL (0.1-1.0); MONO % 10.4 % (3.0-9.0); NEUT # 2.9 10*3/uL (2.3-7.9); NEUT % 57.9 % (47.0-73.0); PLATELET COUNT AUTOMATED 312 10*3/uL (130-400); RED BLOOD COUNT 5.07 10*6/uL (4.10-5.10)
[2017-11-13 08:00] VITALS: BP 148/70
[2017-11-13 12:00] VITALS: BP 126/61
[2017-11-13 16:00] VITALS: BP 140/85
[2017-11-13 20:00] VITALS: BP 155/69
[2017-11-14] VITALS: BP 149/80
[2017-11-14 00:09] LABS: ADENOVIRUS Negative (Negative); INFLUENZA A Negative (Negative); INFLUENZA B Positive (Negative); METAPNEUMOVIRUS Negative (Negative); PARAINFLUENZA 1 Negative (Negative); PARAINFLUENZA 2 Negative (Negative); PARAINFLUENZA 3 Negative (Negative); RHINOVIRUS Negative (Negative); RSV A Negative (Negative); RSV B Negative (Negative)
[2017-11-14 07:36] LABS: BUN 3 mg/dl (7-24); CHLORIDE 100 mmol/L (98-107); CREATININE 0.37 mg/dL (0.55-1.02); POTASSIUM 3.3 mmol/L (3.5-5.1); SODIUM 139 mmol/L (136-145)
[2017-11-14 08:00] VITALS: BP 156/73
[2017-11-14 12:00] VITALS: BP 152/74
[2017-11-14 16:00] VITALS: BP 132/50
[2017-11-14 20:00] VITALS: BP 133/52
[2017-11-15] VITALS: BP 143/58
[2017-11-15 06:11] LABS: BUN 4 mg/dl (7-24); CHLORIDE 103 mmol/L (98-107); CREATININE 0.47 mg/dL (0.55-1.02); POTASSIUM 3.2 mmol/L (3.5-5.1); SODIUM 142 mmol/L (136-145)
[2017-11-15 08:00] VITALS: BP 141/58
[2017-11-15 12:00] VITALS: BP 124/76
[2017-11-15] MEDS ORDERED: OMNICEF300 MG PO (12:32)
[2017-11-15] MEDS ORDERED: DOXYCYCLINE100 M3 PO (12:32)
[2017-11-15 16:00] VITALS: BP 155/67
[2017-11-15 20:00] VITALS: BP 156/70
[2017-11-16] VITALS: BP 136/68
[2017-11-16 07:36] LABS: BASO % 0.6 % (0.0-1.0); EOS # 0.1 10*3/uL (0.0-0.4); EOS % 1.1 % (1.0-4.0); HEMATOCRIT 37.4 % (37.0-47.0); HEMOGLOBIN 11.9 g/dl (12.0-16.0); LYMPH # 1.2 10*3/uL (1.3-4.4); LYMPH % 26.3 % (27.0-41.0); MEAN CELL VOLUME 87.2 fl (81.0-99.0); MEAN CORPUSCULAR HGB 27.7 pg (27.0-31.0); MEAN CORPUSCULAR HGB CONC 31.8 g/dl (33.0-37.0); MEAN PLATELET VOLUME 10.8 fl (9.6-12.3); MONO # 0.7 10*3/uL (0.1-1.0); MONO % 13.8 % (3.0-9.0); NEUT # 2.7 10*3/uL (2.3-7.9); NEUT % 57.8 % (47.0-73.0); PLATELET COUNT AUTOMATED 327 10*3/uL (130-400); RED BLOOD COUNT 4.29 10*6/uL (4.10-5.10); RED CELL DISTRI WIDTH 13.7 % (0-14.5); WHITE BLOOD COUNT 4.7 10*3/uL (4.8-10.8)
[2017-11-16 08:00] VITALS: BP 166/68
[2017-11-16 08:03] LABS: BUN 6 mg/dl (7-24); CHLORIDE 105 mmol/L (98-107); CREATININE 0.65 mg/dL (0.55-1.02); POTASSIUM 3.5 mmol/L (3.5-5.1); SODIUM 144 mmol/L (136-145)
[2017-11-16 12:00] VITALS: BP 137/63
[2017-11-16 16:00] VITALS: BP 147/66
[2017-11-16 20:00] VITALS: BP 135/72
[2017-11-17] VITALS: BP 116/59
[2017-11-17 06:22] LABS: BASO % 0.6 % (0.0-1.0); EOS # 0.1 10*3/uL (0.0-0.4); EOS % 1.7 % (1.0-4.0); HEMATOCRIT 35.8 % (37.0-47.0); HEMOGLOBIN 11.1 g/dl (12.0-16.0); LYMPH # 1.7 10*3/uL (1.3-4.4); LYMPH % 33.2 % (27.0-41.0); MEAN CELL VOLUME 89.5 fl (81.0-99.0); MEAN CORPUSCULAR HGB 27.8 pg (27.0-31.0); MEAN PLATELET VOLUME 11.1 fl (9.6-12.3); MONO # 0.8 10*3/uL (0.1-1.0); MONO % 14.8 % (3.0-9.0); NEUT # 2.5 10*3/uL (2.3-7.9); NEUT % 49.3 % (47.0-73.0); PLATELET COUNT AUTOMATED 300 10*3/uL (130-400); RED CELL DISTRI WIDTH 13.6 % (0-14.5); WHITE BLOOD COUNT 5.2 10*3/uL (4.8-10.8)
[2017-11-17 06:40] LABS: BUN 5 mg/dl (7-24); CHLORIDE 108 mmol/L (98-107); CREATININE 0.65 mg/dL (0.55-1.02); POTASSIUM 3.4 mmol/L (3.5-5.1); SODIUM 146 mmol/L (136-145)
[2017-11-17 08:00] VITALS: BP 156/67
[2017-11-17 12:00] VITALS: BP 152/59
[2017-11-17 16:00] VITALS: BP 136/50
[2017-11-17 20:00] VITALS: BP 167/70
[2017-11-18] VITALS: BP 140/70
[2017-11-18 06:48] LABS: BASO % 0.8 % (0.0-1.0); EOS # 0.1 10*3/uL (0.0-0.4); EOS % 1.2 % (1.0-4.0); HEMATOCRIT 37.4 % (37.0-47.0); HEMOGLOBIN 11.8 g/dl (12.0-16.0); LYMPH # 1.9 10*3/uL (1.3-4.4); LYMPH % 37.1 % (27.0-41.0); MEAN CELL VOLUME 89.3 fl (81.0-99.0); MEAN CORPUSCULAR HGB 28.2 pg (27.0-31.0); MEAN CORPUSCULAR HGB CONC 31.6 g/dl (33.0-37.0); MEAN PLATELET VOLUME 10.6 fl (9.6-12.3); MONO # 0.6 10*3/uL (0.1-1.0); MONO % 12.2 % (3.0-9.0); NEUT # 2.4 10*3/uL (2.3-7.9); NEUT % 48.5 % (47.0-73.0); PLATELET COUNT AUTOMATED 303 10*3/uL (130-400); RED BLOOD COUNT 4.19 10*6/uL (4.10-5.10); RED CELL DISTRI WIDTH 13.8 % (0-14.5)
[2017-11-18 06:58] LABS: BUN 4 mg/dl (7-24); CHLORIDE 104 mmol/L (98-107); POTASSIUM 3.8 mmol/L (3.5-5.1); SODIUM 141 mmol/L (136-145)
[2017-11-18 08:00] VITALS: BP 99/72
[2017-11-18 12:00] VITALS: BP 137/57
[2017-11-18 16:00] VITALS: BP 135/62
[2017-11-18 20:00] VITALS: BP 125/63
[2017-11-19] VITALS: BP 124/54
[2017-11-19 06:28] LABS: BASO % 0.8 % (0.0-1.0); EOS # 0.1 10*3/uL (0.0-0.4); EOS % 1.3 % (1.0-4.0); HEMATOCRIT 32.6 % (37.0-47.0); HEMOGLOBIN 10.6 g/dl (12.0-16.0); LYMPH # 1.9 10*3/uL (1.3-4.4); LYMPH % 36.7 % (27.0-41.0); MEAN CELL VOLUME 88.6 fl (81.0-99.0); MEAN CORPUSCULAR HGB 28.8 pg (27.0-31.0); MEAN CORPUSCULAR HGB CONC 32.5 g/dl (33.0-37.0); MEAN PLATELET VOLUME 10.9 fl (9.6-12.3); MONO # 0.5 10*3/uL (0.1-1.0); MONO % 9.7 % (3.0-9.0); NEUT # 2.7 10*3/uL (2.3-7.9); NEUT % 51.3 % (47.0-73.0); PLATELET COUNT AUTOMATED 290 10*3/uL (130-400); RED BLOOD COUNT 3.68 10*6/uL (4.10-5.10); RED CELL DISTRI WIDTH 13.7 % (0-14.5); WHITE BLOOD COUNT 5.3 10*3/uL (4.8-10.8)
[2017-11-19 07:00] LABS: BUN 7 mg/dl (7-24); CHLORIDE 104 mmol/L (98-107); CREATININE 0.58 mg/dL (0.55-1.02); POTASSIUM 3.7 mmol/L (3.5-5.1); SODIUM 141 mmol/L (136-145)
[2017-11-19 08:00] VITALS: BP 130/49
[2017-11-19 12:00] VITALS: BP 130/56
[2017-11-19 16:00] VITALS: BP 124/98
[2017-11-19 20:00] VITALS: BP 126/56
[2017-11-20] VITALS: BP 125/58
[2017-11-20 06:11] LABS: BASO # 0.1 10*3/uL (0.0-0.1); EOS # 0.1 10*3/uL (0.0-0.4); EOS % 1.2 % (1.0-4.0); HEMATOCRIT 31.7 % (37.0-47.0); HEMOGLOBIN 10.3 g/dl (12.0-16.0); LYMPH # 2.1 10*3/uL (1.3-4.4); LYMPH % 40.6 % (27.0-41.0); MEAN CELL VOLUME 88.8 fl (81.0-99.0); MEAN CORPUSCULAR HGB 28.9 pg (27.0-31.0); MEAN CORPUSCULAR HGB CONC 32.5 g/dl (33.0-37.0); MEAN PLATELET VOLUME 11.3 fl (9.6-12.3); MONO # 0.5 10*3/uL (0.1-1.0); MONO % 10.3 % (3.0-9.0); NEUT # 2.4 10*3/uL (2.3-7.9); NEUT % 46.5 % (47.0-73.0); PLATELET COUNT AUTOMATED 286 10*3/uL (130-400); RED BLOOD COUNT 3.57 10*6/uL (4.10-5.10); WHITE BLOOD COUNT 5.1 10*3/uL (4.8-10.8)
[2017-11-20 08:00] VITALS: BP 142/70
[2017-11-20] MEDS ORDERED: BENZONATATE100 M1 PO (10:45)
[2017-11-20] MEDS ORDERED: LEVEMIR100 UNIT/1 SC (10:45)
[2017-11-20] MEDS ORDERED: Insulin Lispro, Reco SC (10:45)
[2017-11-20] MEDS ORDERED: PANTOPRAZOLE SO40 MG PO (10:45)
[2017-11-20] MEDS ORDERED: B12,B-12,B 12500 MC1 PO (10:45)
[2017-11-20] MEDS ORDERED: NYSTOP60 GM T (10:45)
[2017-11-20] MEDS ORDERED: METOPROLOL TART50 M1 PO (10:45)
[2017-11-20] MEDS ORDERED: VITAMIN D50000 UNIT PO (10:45)
[2017-11-20 12:00] VITALS: BP 138/62
== END 2017-11-20 15:25 | disposition other institution (70) | DRG 871 ==
LOC: ED 20:05 → 4E 22:18 → EDHOLD 22:18 → ICCU 22:18 → 4E 11-13 14:16
PROVIDERS: Emergency Medicine; Internal Medicine; Internal Medicine Critical Care Medicine; Internal Medicine Hospice and Palliative Medicine; Internal Medicine Nephrology; Student in an Organized Health Care Education/Training Program
DX: A41.9 Sepsis, unspecified organism (principal); N17.0 Acute kidney failure with tubular necrosis; R65.21 Severe sepsis with septic shock; G93.41 Metabolic encephalopathy; J10.00 Influenza due to other identified influenza virus with unspecified type of pneumonia; E11.10 Type 2 diabetes mellitus with ketoacidosis without coma; J90 Pleural effusion, not elsewhere classified; I47.1 Supraventricular tachycardia; Z22.322 Carrier or suspected carrier of Methicillin resistant Staphylococcus aureus; T68.XXXA Hypothermia, initial encounter; E87.6 Hypokalemia; E83.39 Other disorders of phosphorus metabolism; E83.42 Hypomagnesemia; I10 Essential (primary) hypertension; B37.9 Candidiasis, unspecified; R19.00 Intra-abdominal and pelvic swelling, mass and lump, unspecified site; E78.00 Pure hypercholesterolemia, unspecified; E11.65 Type 2 diabetes mellitus with hyperglycemia; B36.9 Superficial mycosis, unspecified; K21.9 Gastro-esophageal reflux disease without esophagitis; E04.2 Nontoxic multinodular goiter; D25.2 Subserosal leiomyoma of uterus; Z79.4 Long term (current) use of insulin; Z79.899 Other long term (current) drug therapy; Z83.3 Family history of diabetes mellitus

== ENCOUNTER 2017-12-22 14:55 | Emergency (ER) | payer SELFPAY ==
[~2017-12-22] VITALS: Ht 160 cm; Wt 77.6 kg
[~2017-12-22 14:55] MED LIST: AMLODIPINE BESYL5 MG PO; ASPIRIN325 MG PO; B12,B-12,B 12500 MC1 PO; BENZONATATE100 M1 PO; DOXYCYCLINE100 M3 PO; Insulin Lispro, Reco SC; LEVEMIR100 UNIT/1 SC; LISINOPRIL20 MG PO; LOVASTATIN20 MG PO; METFORMIN1000 MG PO; METOPROLOL TART50 M1 PO; NOVOLIN 70100 UNIT/1 SQ; NYSTOP60 GM T; OMNICEF300 MG PO; PANTOPRAZOLE SO40 MG PO; VITAMIN D50000 UNIT PO
[2017-12-22 15:55] LABS: BASO # 0.1 10*3/uL (0.0-0.1); BASO % 0.7 % (0.0-1.0); EOS # 0.3 10*3/uL (0.0-0.4); EOS % 2.4 % (1.0-4.0); HEMATOCRIT 40.8 % (37.0-47.0); HEMOGLOBIN 12.9 g/dl (12.0-16.0); LYMPH # 1.3 10*3/uL (1.3-4.4); LYMPH % 11.2 % (27.0-41.0); MEAN CELL VOLUME 88.7 fl (81.0-99.0); MEAN CORPUSCULAR HGB CONC 31.6 g/dl (33.0-37.0); MEAN PLATELET VOLUME 11.7 fl (9.6-12.3); MONO # 0.6 10*3/uL (0.1-1.0); MONO % 5.1 % (3.0-9.0); NEUT # 8.9 10*3/uL (2.3-7.9); NEUT % 79.9 % (47.0-73.0); PLATELET COUNT AUTOMATED 208 10*3/uL (130-400); RED CELL DISTRI WIDTH 13.9 % (0-14.5); WHITE BLOOD COUNT 11.2 10*3/uL (4.8-10.8)
[2017-12-22 16:09] LABS: BILIRUBIN NEGATIVE (NEGATIVE); BLOOD NEGATIVE (NEGATIVE); CLARITY CLEAR (CLEAR); COLOR YELLOW (YELLOW); GLUCOSE 3+ (NEGATIVE); KETONE NEGATIVE (NEGATIVE); LEUKO ESTERASE NEGATIVE (NEGATIVE); NITRITE NEGATIVE (NEGATIVE); UROBILINOGEN 0.2 E.U./dl (0.2-1.0)
[2017-12-22 16:09] LABS: ALBUMIN 2.9 gm/dl (3.1-4.5); ALKALINE PHOSPHATASE 112 U/L (45-117); BUN 13 mg/dl (7-24); CHLORIDE 101 mmol/L (98-107); CREATININE 0.89 mg/dL (0.55-1.02); POTASSIUM 3.8 mmol/L (3.5-5.1); SGOT/AST 29 IU/L (3-35); SGPT/ALT 22 U/L (12-78); SODIUM 137 mmol/L (136-145); TOTAL PROTEIN 6.9 gm/dL (6.4-8.2)
[2017-12-22 16:25] LABS: BACTERIA TRACE; EPITHELIAL CELLS 0-2
== END 2017-12-22 17:33 | disposition home or self-care (01) ==
LOC: ED 14:55
PROVIDERS: Nurse Practitioner
DX: M53.3 Sacrococcygeal disorders, not elsewhere classified (principal); Z79.899 Other long term (current) drug therapy

== ENCOUNTER 2020-11-10 01:32 | Emergency (ER) | payer OTHER ==
[~2020-11-10] VITALS: Ht 154.9 cm; Wt 97.5 kg
[2020-11-10 02:14] LABS: BASO % 0.3 % (0.0-1.0); EOS % 0.3 % (1.0-4.0); HEMATOCRIT 41.7 % (37.0-47.0); LYMPH # 1.2 10*3/uL (1.3-4.4); LYMPH % 10.3 % (27.0-41.0); MEAN CELL VOLUME 90.1 fl (81.0-99.0); MEAN CORPUSCULAR HGB 28.1 pg (27.0-31.0); MEAN CORPUSCULAR HGB CONC 31.2 g/dl (33.0-37.0); MONO # 0.6 10*3/uL (0.1-1.0); MONO % 5.3 % (3.0-9.0); NEUT # 9.6 10*3/uL (2.3-7.9); NEUT % 83.3 % (47.0-73.0); PLATELET COUNT AUTOMATED 272 10*3/uL (130-400); RED BLOOD COUNT 4.63 10*6/uL (4.10-5.10); RED CELL DISTRI WIDTH 13.4 % (0-14.5); WHITE BLOOD COUNT 11.5 10*3/uL (4.8-10.8)
[2020-11-10 02:41] LABS: ALBUMIN 3.3 gm/dl (3.1-4.5); ALKALINE PHOSPHATASE 133 U/L (45-117); BUN 19 mg/dl (7-24); CHLORIDE 104 mmol/L (98-107); CREATININE 0.75 mg/dL (0.55-1.02); POTASSIUM 3.8 mmol/L (3.5-5.1); SGOT/AST 18 IU/L (3-35); SGPT/ALT 24 U/L (12-78); SODIUM 139 mmol/L (136-145); TOTAL PROTEIN 7.9 gm/dL (6.4-8.2)
[2020-11-10 02:58] LABS: BILIRUBIN Negative (Negative); BLOOD Negative (Negative); CLARITY Clear (Clear); COLOR Yellow (Yellow); GLUCOSE 3+ (Negative); KETONE Negative (Negative); LEUKO ESTERASE Negative (Negative); NITRITE Negative (Negative); PH 6.5 (4.5-8.0); SPECIFIC GRAVITY 1.015 (1.001-1.030)
== END 2020-11-10 05:15 | disposition home or self-care (01) ==
LOC: ED 01:32
PROVIDERS: Emergency Medicine
DX: E11.649 Type 2 diabetes mellitus with hypoglycemia without coma (principal); I10 Essential (primary) hypertension; K21.9 Gastro-esophageal reflux disease without esophagitis; E78.00 Pure hypercholesterolemia, unspecified; Z79.4 Long term (current) use of insulin; Z79.899 Other long term (current) drug therapy